=== PATIENT | female | born 1975 | race Caucasian/White ===

== ENCOUNTER 2017-10-08 20:30 | Emergency (ER) | payer OTHER ==
[~2017-10-08] VITALS: Ht 160 cm; Wt 59.0 kg
[~2017-10-08 20:30] MED LIST: PNV1TABL25 PO
[2017-10-08] MEDS ORDERED: KETOROLAC 30 MG/ML VIAL. IV ONE (21:00)
[2017-10-08 21:25] LABS: BASO # 0.1 x10^3/uL (0.0-0.2); BASO % 1 % (0-3); EOS # 0.3 x10^3/uL (0.0-0.7); EOS % 2 % (0-3); LYMPH % 19 % (24-48); MEAN CORPUSCULAR HEMOGLOBIN 28 pg (25-35); MEAN CORPUSCULAR HGB CONC 34 g/dL (31-37); MEAN CORPUSCULAR VOLUME 83 fL (79-100); MONO # 0.8 x10^3/uL (0.0-1.1); MONO % 8 % (0-9); NEUT # 7.3 x10^3uL (1.8-7.7); NEUT % 70 % (31-73); PLATELET COUNT 272 x10^3/uL (140-400); RED BLOOD COUNT 5.33 x10^6/uL (3.50-5.40); RED CELL DISTRIBUTION WIDTH 13.5 % (11.5-14.5); WHITE BLOOD COUNT 10.5 x10^3/uL (4.0-11.0)
[2017-10-08 21:37] LABS: ALBUMIN 3.9 g/dL (3.4-5.0); ALBUMIN/GLOBULIN RATIO 1.1 (1.0-1.7); CALCIUM 8.8 mg/dL (8.5-10.1); CREATININE 0.8 mg/dL (0.6-1.0); POTASSIUM 3.4 mmol/L (3.5-5.1); TOTAL BILIRUBIN 1.7 mg/dL (0.2-1.0); TOTAL PROTEIN 7.6 g/dL (6.4-8.2)
[2017-10-08 22:01] LABS: BILIRUBIN,URINE NEG (NEG); CLARITY,URINE HAZY; COLOR,URINE YELLOW; GLUCOSE,URINE NEG (NEG)
[2017-10-08 22:02] LABS: NITRITE,URINE NEG (NEG); UROBILINOGEN,URINE 0.2 mg/dL (0.2 mg/dL)
[2017-10-08 22:05] LABS: BACTERIA,URINE FEW /HPF (0-FEW); SQUAMOUS EPITHELIAL CELL,UR MANY /LPF
--- NOTE | 2017-10-08 23:12 | RAD ---
INDICATION : RUQ PAIN COMPARISON: None TECHNIQUE: Multiple ultrasound images obtained through the abdomen in grayscale and color. FINDINGS: Liver: Mildly echogenic. Gallbladder: Gallstones are visualized with tenderness within the region. There is gallbladder wall thickening with some suspected pericholecystic edema. There is some possible tumefactive sludge within. IVC: Partially distended at level of liver. Common Bile Duct: 8 mm Pancreas: No gross abnormality identified in visualized portions of pancreas. Right Kidney: No hydronephrosis. IMPRESSION: 1. Gallstones are visualized as well as gallbladder wall thickening. Given the gallbladder wall thickening and stones causes such as cholecystitis are within the differential although other possible causes of gallbladder wall thickening include reactive changes to adjacent hepatic inflammation or a systemic process such as hypoproteinemia. 2. Common bile duct appears dilated through a portion of its course. Cannot exclude a distal stone and if more complete characterization is desired a follow-up MRCP could BE obtained. 3. Liver is echogenic. Nonspecific but could be seen with mild fatty infiltration Electronically signed by: Golden Obrien MD (10/08/2017 11:09 PM) [facility]
[2017-10-09] MEDS ORDERED: IV NORMAL SALINE 1,000ML 1,000 ML IV ONE (01:00)
[2017-10-09] MEDS ORDERED: PIPERACILLIN/TAZOBACTAM 3.375 GM in IV NORMAL SALINE 50ML 50 ML IV ONE (01:00)
[2017-10-09] MEDS ORDERED: IV NORMAL SALINE 50ML 50 ML ONE (01:13)
[2017-10-09] MEDS ORDERED: PIPERACILLIN/TAZOBACTAM 3.375 GM VIAL IV ONE (01:14)
--- NOTE | 2017-10-09 02:07 | PHYS DOC ---
Past History Past Medical History: No Pertinent History Past Surgical History: No Surgical History, Other Alcohol Use: None Drug Use: None Adult General Chief Complaint Chief Complaint: FLANK PAIN HPI HPI 42-year-old female diagnosed with gallstones 4 years ago. She reports having intermittent colicky pain over the last 4 years which has become increasingly frequent and more painful recently. Over the last several days pain has been constant with paroxysms. Patient denies fevers chills sweats or shaking chills. No nausea vomiting or diarrhea. Pain is right upper quadrant of her abdomen and radiating to her right flank. Normal bladder habits and patient denies possibility of . She is currently breast-feeding Review of Systems Review of Systems Constitutional: Denies fever or chills [] Eyes: Denies change in visual acuity, redness, or eye pain [] HENT: Denies nasal congestion or sore throat [] Respiratory: Denies cough or shortness of breath [] Cardiovascular: No additional information not addressed in HPI [] GI: Denies abdominal pain, nausea, vomiting, bloody stools or diarrhea [] : Denies dysuria or hematuria [] Musculoskeletal: Denies back pain or joint pain [] Integument: Denies rash or skin lesions [] Neurologic: Denies headache, focal weakness or sensory changes [] Endocrine: Denies polyuria or polydipsia [] All other systems were reviewed and found to be within normal limits, except as documented in this note. Current Medications Current Medications Current Medications Medications (Trade) Dose Ordered Sig/Vicki Start Time Stop Time Status Last Admin Dose Admin Ketorolac Tromethamine (Toradol) 30 mg 1X ONCE 10/08/17 21:00 10/08/17 21:01 DC 10/08/17 21:37 30 MG Piperacillin Sod/ Tazobactam Sod (Zosyn) 3.375 gm STK-MED ONCE 10/09/17 01:14 10/09/17 01:15 DC Piperacillin Sod/ Tazobactam Sod 3.375 gm/Sodium Chloride 50 ml @ 100 mls/hr 1X ONCE 10/09/17 01:00 10/09/17 01:29 DC 10/09/17 01:19 100 MLS/HR Sodium Chloride 50 ml @ As Directed STK-MED ONCE 10/09/17 01:13 10/09/17 01:14 DC Allergies Allergies Allergies Coded Allergies Type Severity Reaction Last Updated Verified No Known Drug Allergies 11/16/15 No Physical Exam Physical Exam Constitutional: Well developed, well nourished, no acute distress, non-toxic appearance. [] HENT: Normocephalic, atraumatic, bilateral external ears normal, oropharynx moist, no oral exudates, nose normal. [] Eyes: PERRLA, EOMI, conjunctiva normal, no discharge. [] Neck: Normal range of motion, no tenderness, supple, no stridor. [] Cardiovascular:Heart rate regular rhythm, no murmur [] Lungs & Thorax: Bilateral breath sounds clear to auscultation [] Abdomen: Bowel sounds normal, soft, upper quadrant tenderness with positive Rosenthal's no guarding or rebound, no masses, no pulsatile masses. [] Skin: Warm, dry, no erythema, no rash. [] Back: No tenderness, no CVA tenderness. [] Extremities: No tenderness, no cyanosis, no clubbing, ROM intact, no edema. [] Neurologic: Alert and oriented X 3, normal motor function, normal sensory function, no focal deficits noted. [] Psychologic: Affect normal, judgement normal, mood normal. [] Current Patient Data Vital Signs Vital Signs Date Time Temp Pulse Resp B/P (MAP) Pulse Ox O2 Delivery O2 Flow Rate FiO2 10/08/17 20:30 98.2 92 18 99 Room Air Lab Results Laboratory Tests Test 10/08/17 20:16 10/08/17 21:04 POC Urine HCG, Qualitative hcg negative (Negative) White Blood Count 10.5 x10^3/uL (4.0-11.0) Red Blood Count 5.33 x10^6/uL (3.50-5.40) Hemoglobin 15.0 g/dL (12.0-15.5) Hematocrit 44.0 % (36.0-47.0) Mean Corpuscular Volume 83 fL (79-100) Mean Corpuscular Hemoglobin 28 pg (25-35) Mean Corpuscular Hemoglobin Concent 34 g/dL (31-37) Red Cell Distribution Width 13.5 % (11.5-14.5) Platelet Count 272 x10^3/uL (140-400) Neutrophils (%) (Auto) 70 % (31-73) Lymphocytes (%) (Auto) 19 % (24-48) L Monocytes (%) (Auto) 8 % (0-9) Eosinophils (%) (Auto) 2 % (0-3) Basophils (%) (Auto) 1 % (0-3) Neutrophils # (Auto) 7.3 x10^3uL (1.8-7.7) Lymphocytes # (Auto) 2.0 x10^3/uL (1.0-4.8) Monocytes # (Auto) 0.8 x10^3/uL (0.0-1.1) Eosinophils # (Auto) 0.3 x10^3/uL (0.0-0.7) Basophils # (Auto) 0.1 x10^3/uL (0.0-0.2) Urine Collection Type Unknown Urine Color Yellow Urine Clarity Hazy Urine pH 7.0 Urine Specific Spiro 1.020 Urine Protein Neg (NEG-TRACE) Urine Glucose (UA) Neg mg/dL (NEG) Urine Ketones (Stick) Neg mg/dL (NEG) Urine Blood Neg (NEG) Urine Nitrite Neg (NEG) Urine Bilirubin Neg (NEG) Urine Urobilinogen Dipstick 0.2 mg/dL (0.2 mg/dL) Urine Leukocyte Esterase Trace (NEG) Urine RBC 1-2 /HPF (0-2) Urine WBC 5-10 /HPF (0-4) Urine Squamous Epithelial Cells Many /LPF Urine Bacteria Few /HPF (0-FEW) Urine Mucus Mod /LPF Sodium Level 142 mmol/L (136-145) Potassium Level 3.4 mmol/L (3.5-5.1) L Chloride Level 105 mmol/L (98-107) Carbon Dioxide Level 27 mmol/L (21-32) Anion Gap 10 (6-14) Blood Urea Nitrogen 6 mg/dL (7-20) L Creatinine 0.8 mg/dL (0.6-1.0) Estimated GFR (Cockcroft-Gault) 79.0 BUN/Creatinine Ratio 8 (6-20) Glucose Level 97 mg/dL (70-99) Calcium Level 8.8 mg/dL (8.5-10.1) Total Bilirubin 1.7 mg/dL (0.2-1.0) H Aspartate Amino Transferase (AST) 12 U/L (15-37) L Alanine Aminotransferase (ALT) 23 U/L (14-59) Alkaline Phosphatase 83 U/L (46-116) Total Protein 7.6 g/dL (6.4-8.2) Albumin 3.9 g/dL (3.4-5.0) Albumin/Globulin Ratio 1.1 (1.0-1.7) Lipase 107 U/L (73-393) EKG EKG [] Radiology/Procedures Radiology/Procedures [] Course & Med Decision Making Course & Med Decision Making Pertinent Labs and Imaging studies reviewed. (See chart for details) Signs and symptoms consistent with biliary colic in the setting of known gallbladder disease. Patient is nontoxic appearing and able to ambulate without difficulty. Labs unremarkable except bilirubin mildly elevated at 1.7. Ultrasound reflecting stones with gallbladder wall thickening and dilated common bile duct. Results discussed with Dr. Alvarez surgery on-call at [place]. Dr. Alvarez's were the history and findings and requests antibiotic administration with Zosyn, nothing by mouth status, IV fluids and he will provide his services in consultation in the morning for definitive surgical care as indicated. Case discussed with Dr. Flor of the hospitalist service. She is aware the history and findings and accept the patient for inpatient admission to a surgical bed and continued care as indicated [] Dragon Disclaimer Dragon Disclaimer This electronic medical record was generated, in whole or in part, using a voice recognition dictation system. Departure Departure: Impression: Primary Impression: Biliary colic Additional Impressions: Acute cholecystitis Cholelithiasis Abdominal pain Hyperbilirubinemia [facility] Condition: IMPROVED Referrals: VIOLETA RUIZ DO, MPH (PCP) Problem Qualifiers CURT WOODS MD October 09, 2017 02:07
[2017-10-09] MEDS ORDERED: MORPHINE SULFATE 4 MG/ML DISP.SYRIN. IV ONE (02:30)
[2017-10-09] MEDS ORDERED: ONDANSETRON ODT 4 MG TAB.RAPDIS PO ONE (02:30)
[2017-10-09 02:35] VITALS: BP 114/66
== END 2017-10-09 02:35 | disposition short-term general hospital (02) ==
LOC: ER 20:30
DX: K80.62 Calculus of gallbladder and bile duct with acute cholecystitis without obstruction (principal); E80.6 Other disorders of bilirubin metabolism
CPT/HCPCS: 36415; 76705; 80053; 81001; 81025; 83690; 85025; 96365; 96375; 99285; J1885; J2270; J2543; Q0162; J7030

== ENCOUNTER 2018-11-22 21:07 | Emergency (ER) | payer OTHER ==
[~2018-11-22] VITALS: Ht 165.1 cm; Wt 65.8 kg
--- NOTE | 2018-11-22 21:11 | ED.ADGEN ---
Past History Past Medical History: No Pertinent History Past Surgical History: No Surgical History, Other Alcohol Use: None Drug Use: None Adult General Chief Complaint Chief Complaint "..I am vomiting because of my .. and I guess I passed out..." HPI HPI This 43 year old female who presents with above hx and complaints of nausea and vomiting. Pt. has episode of syncope. Pt. denies any head or chest pain. Patient does have epigastric pain from multiple episodes of vomiting. Patient has been 5 times with 4 vaginal deliveries. Patient states that each one her she develops excessive vomiting. Patient has followed up with [facility] RISK ANALYST. Ultrasound showed IUP Patient no history of trauma. No history of bad food, no history immunosuppression. No history of travel or specific ill contacts. Review of Systems Review of Systems Constitutional: Denies fever or chills [] Eyes: Denies change in visual acuity, redness, or eye pain [] HENT: Denies nasal congestion or sore throat [] Respiratory: Denies cough or shortness of breath [] Cardiovascular: No additional information not addressed in HPI [] GI: Epigastric abdominal pain, nausea, vomiting,. Denies bloody stools or diarrhea [] : Denies dysuria or hematuria [] Musculoskeletal: Denies back pain or joint pain [] Integument: Denies rash or skin lesions [] Neurologic: Denies headache, focal weakness or sensory changes [] Endocrine: Denies polyuria or polydipsia [] All other systems were reviewed and found to be within normal limits, except as documented in this note. Family History Family History Noncontributory Current Medications Current Medications Current Medications Medications (Trade) Dose Ordered Sig/Vicki Start Time Stop Time Status Last Admin Dose Admin Diphenhydramine HCl (Benadryl) 25 mg 1X ONCE 11/22/18 22:30 11/22/18 22:31 DC 11/22/18 22:21 25 MG Lactated Ringer's 1,000 ml @ 1,000 mls/hr 1X ONCE 11/22/18 22:15 11/22/18 23:12 DC 11/22/18 22:20 1,000 MLS/HR Magnesium Sulfate 50 ml @ 25 mls/hr 1X ONCE 11/22/18 22:15 11/22/18 23:12 DC 11/22/18 22:20 25 MLS/HR Ondansetron HCl (Zofran) 8 mg 1X ONCE 11/22/18 22:30 11/22/18 22:31 DC Prochlorperazine Edisylate (Compazine) 10 mg 1X ONCE 11/22/18 23:00 11/22/18 23:07 DC 11/22/18 22:54 10 MG Allergies Allergies Allergies Coded Allergies Type Severity Reaction Last Updated Verified No Known Drug Allergies 11/16/15 No Physical Exam Physical Exam Constitutional: Moderate acute distress, non-toxic appearance. [] HENT: Normocephalic, atraumatic, bilateral external ears normal, oropharynx dry, no oral exudates, nose normal. [] Eyes: PERRLA, EOMI, conjunctiva normal, no discharge. [] Neck: Normal range of motion, no tenderness, supple, no stridor. [] Cardiovascular:Heart rate regular rhythm, no murmur Note upon standing patient has developed tachycardia in excess of 120. Reclined in bed heart rate 70's Lungs & Thorax: Bilateral breath sounds clear to auscultation [] Abdomen: Bowel sounds normal, soft, no tenderness, no masses, no pulsatile mass es. [] Gravid. FHR Skin: Warm, dry, no erythema, no rash. [] Back: No tenderness, no CVA tenderness. [] Extremities: No tenderness, no cyanosis, no clubbing, ROM intact, no edema. [] Neurologic: Alert and oriented X 3, normal motor function, normal sensory function, no focal deficits noted. []DTR +2 patella and brachial. Public Health Informatician equal. No drift. Ambulatory without problems. Psychologic: Affect anxious, judgement normal, mood normal. [] Current Patient Data Vital Signs Vital Signs Date Time Temp Pulse Resp B/P (MAP) Pulse Ox O2 Delivery O2 Flow Rate FiO2 11/22/18 21:33 98.2 116 16 97 Room Air Lab Results Laboratory Tests Test 11/22/18 21:25 11/22/18 21:30 Glucose (Fingerstick) 86 mg/dL (70-99) White Blood Count 13.3 x10^3/uL (4.0-11.0) H Red Blood Count 5.35 x10^6/uL (3.50-5.40) Hemoglobin 15.2 g/dL (12.0-15.5) Hematocrit 44.8 % (36.0-47.0) Mean Corpuscular Volume 84 fL (79-100) Mean Corpuscular Hemoglobin 28 pg (25-35) Mean Corpuscular Hemoglobin Concent 34 g/dL (31-37) Red Cell Distribution Width 13.9 % (11.5-14.5) Platelet Count 271 x10^3/uL (140-400) Neutrophils (%) (Auto) 79 % (31-73) H Lymphocytes (%) (Auto) 15 % (24-48) L Monocytes (%) (Auto) 4 % (0-9) Eosinophils (%) (Auto) 1 % (0-3) Basophils (%) (Auto) 1 % (0-3) Neutrophils # (Auto) 10.5 x10^3uL (1.8-7.7) H Lymphocytes # (Auto) 2.0 x10^3/uL (1.0-4.8) Monocytes # (Auto) 0.5 x10^3/uL (0.0-1.1) Eosinophils # (Auto) 0.1 x10^3/uL (0.0-0.7) Basophils # (Auto) 0.2 x10^3/uL (0.0-0.2) Prothrombin Time 9.6 SEC (9.4-11.4) Prothrombin Time INR 0.9 (0.9-1.1) PTT 24 SEC (23-33) Maternal Serum HCG Beta Subunit 030266 mIU/mL (0-6) H Sodium Level 140 mmol/L (136-145) Potassium Level 4.1 mmol/L (3.5-5.1) Chloride Level 102 mmol/L (98-107) Carbon Dioxide Level 27 mmol/L (21-32) Anion Gap 11 (6-14) Blood Urea Nitrogen 9 mg/dL (7-20) Creatinine 0.5 mg/dL (0.6-1.0) L Estimated GFR (Cockcroft-Gault) 135.3 Glucose Level 92 mg/dL (70-99) Calcium Level 9.2 mg/dL (8.5-10.1) Magnesium Level 1.7 mg/dL (1.8-2.4) L Total Bilirubin 0.9 mg/dL (0.2-1.0) Direct Bilirubin 0.2 mg/dL (0.0-0.2) Aspartate Amino Transferase (AST) 17 U/L (15-37) Alanine Aminotransferase (ALT) 24 U/L (14-59) Alkaline Phosphatase 77 U/L (46-116) Creatine Kinase 66 U/L (26-192) Troponin I Quantitative < 0.017 ng/mL (0-0.055) MK-Tzu-M-Type Natriuretic Peptide 65 pg/mL (0-124) Total Protein 7.4 g/dL (6.4-8.2) Albumin 3.6 g/dL (3.4-5.0) Amylase Level 63 U/L (25-115) Lipase 124 U/L (73-393) EKG EKG [] Radiology/Procedures Radiology/Procedures [] Course & Med Decision Making Course & Med Decision Making Pertinent Labs and Imaging studies reviewed. (See chart for details) Patient do frequent sips of fluids. Avoid solids and milk products. Try jyoti candies and drinks may be helpful for vomiting. Take Zofran 8 mg up 4 times a day for nausea and vomiting. For marked nausea and vomiting take Compazine 25 mg rectal 4 times a day with 50 mg Benadryl by mouth. Keep follow-up primary care. Follow-up BUSINESS [employer]ISK ANALYST and primary care review labs completed in the emergency department. Note patient discharged as AMA by nurse because patient did not want to wait for infusion of magnesium or second liter of fluids. Patient had not been able to produce a urine before discharge / AMA. [] Final Impression Final Impression 1. Hyperemesis gravidarum[] 2. Gravid +/- 12 weeks (G5/T4) Vaginal 3. BHCG= 107,759 4. Syncope 5. Hypomagnesium 1.7 6. Dehydration Dragon Disclaimer Dragon Disclaimer This electronic medical record was generated, in whole or in part, using a voice recognition dictation system. Discharge Summary Visit Information Final Diagnosis Problems Medical Problems: (1) Dehydration Status: Acute (2) Hyperemesis gravidarum Status: Acute (3) Syncope Status: Acute Brief Hospital Course Allergies Allergies Coded Allergies Type Severity Reaction Last Updated Verified No Known Drug Allergies 11/16/15 No Vital Signs Vital Signs Date Time Temp Pulse Resp B/P (MAP) Pulse Ox O2 Delivery O2 Flow Rate FiO2 11/22/18 21:33 98.2 116 16 97 Room Air Lab Results Laboratory Tests Test 11/22/18 21:25 11/22/18 21:30 Glucose (Fingerstick) 86 mg/dL (70-99) White Blood Count 13.3 x10^3/uL (4.0-11.0) Red Blood Count 5.35 x10^6/uL (3.50-5.40) Hemoglobin 15.2 g/dL (12.0-15.5) Hematocrit 44.8 % (36.0-47.0) Mean Corpuscular Volume 84 fL (79-100) Mean Corpuscular Hemoglobin 28 pg (25-35) Mean Corpuscular Hemoglobin Concent 34 g/dL (31-37) Red Cell Distribution Width 13.9 % (11.5-14.5) Platelet Count 271 x10^3/uL (140-400) Neutrophils (%) (Auto) 79 % (31-73) Lymphocytes (%) (Auto) 15 % (24-48) Monocytes (%) (Auto) 4 % (0-9) Eosinophils (%) (Auto) 1 % (0-3) Basophils (%) (Auto) 1 % (0-3) Neutrophils # (Auto) 10.5 x10^3uL (1.8-7.7) Lymphocytes # (Auto) 2.0 x10^3/uL (1.0-4.8) Monocytes # (Auto) 0.5 x10^3/uL (0.0-1.1) Eosinophils # (Auto) 0.1 x10^3/uL (0.0-0.7) Basophils # (Auto) 0.2 x10^3/uL (0.0-0.2) Prothrombin Time 9.6 SEC (9.4-11.4) Prothromb Time International Ratio 0.9 (0.9-1.1) Activated Partial Thromboplast Time 24 SEC (23-33) Maternal Serum HCG Beta Subunit 385777 mIU/mL (0-6) Sodium Level 140 mmol/L (136-145) Potassium Level 4.1 mmol/L (3.5-5.1) Chloride Level 102 mmol/L (98-107) Carbon Dioxide Level 27 mmol/L (21-32) Anion Gap 11 (6-14) Blood Urea Nitrogen 9 mg/dL (7-20) Creatinine 0.5 mg/dL (0.6-1.0) Estimated GFR (Cockcroft-Gault) 135.3 Glucose Level 92 mg/dL (70-99) Calcium Level 9.2 mg/dL (8.5-10.1) Magnesium Level 1.7 mg/dL (1.8-2.4) Total Bilirubin 0.9 mg/dL (0.2-1.0) Direct Bilirubin 0.2 mg/dL (0.0-0.2) Aspartate Amino Transf (AST/SGOT) 17 U/L (15-37) Alanine Aminotransferase (ALT/SGPT) 24 U/L (14-59) Alkaline Phosphatase 77 U/L (46-116) Creatine Kinase 66 U/L (26-192) Troponin I Quantitative < 0.017 ng/mL (0-0.055) PG-Vtp-N-Type Natriuretic Peptide 65 pg/mL (0-124) Total Protein 7.4 g/dL (6.4-8.2) Albumin 3.6 g/dL (3.4-5.0) Amylase Level 63 U/L (25-115) Lipase 124 U/L (73-393) Brief Hospital Course Ms. Gonzales is a 43 old female who presented with hyperemesis gravidarum and dehydration. Pt. left before completion of fluids and mag. No urine produced during ED stay. Left AMA by Nursing. Discharge Information Condition at Discharge: Improved Dischare Medications Current Medications Lactated Ringer's 1,000 ml @ 1,000 mls/hr Q1H IV Last administered on 11/22/18at 21:40; Admin Dose 1,000 MLS/HR; Start 11/22/18 at 21:12; Stop 11/22/18 at 22:11; Status DC Ondansetron HCl (Zofran) 8 mg 1X ONCE IV Last administered on 11/22/18at 21:40; Admin Dose 8 MG; Start 11/22/18 at 21:30; Stop 11/22/18 at 21:31; Status DC Ondansetron HCl (Zofran) 8 mg 1X ONCE IV Last administered on 11/22/18at 22:20; Admin Dose 8 MG; Start 11/22/18 at 22:30; Stop 6/28/19 at 22:31; Status DC Magnesium Sulfate 50 ml @ 25 mls/hr 1X ONCE IV Last administered on 11/22/18at 22:20; Admin Dose 25 MLS/HR; Start 11/22/18 at 22:15; Stop 11/22/18 at 23:12; Status DC Lactated Ringer's 1,000 ml @ 1,000 mls/hr 1X ONCE IV Last administered on 11/22/18at 22:20; Admin Dose 1,000 MLS/HR; Start 11/22/18 at 22:15; Stop 11/22/18 at 23:12; Status DC Ondansetron HCl (Zofran) 8 mg 1X ONCE IV ; Start 11/22/18 at 22:30; Stop 11/22/18 at 22:31; Status DC Diphenhydramine HCl (Benadryl) 25 mg 1X ONCE IVP Last administered on at 22:21; Admin Dose 25 MG; Start 11/22/18 at 22:30; Stop 11/22/18 at 22:31; Status DC Prochlorperazine Edisylate (Compazine) 10 mg 1X ONCE IV Last administered on 11/22/18at 22:54; Admin Dose 10 MG; Start 11/22/18 at 23:00; Stop 11/22/18 at 23:07; Status DC Active Scripts Active Compazine (Prochlorperazine Maleate) 25 Mg Supp.rect 25 Mg RC QIDPRN PRN Zofran (Ondansetron Hcl) 8 Mg Tablet 8 Mg PO QIDPRN Reported Tablet (Pnv Cmb#95/Ferrous Fumarate/Fa) 1 Each Tablet 1 Tab PO DAILY Dragon Disclaimer This chart was dictated in whole or in part using Voice Recognition software in a busy, high-work load, and often noisy Emergency Department environment. It may contain unintended and wholly unrecognized errors or omissions. ELISEO WEBSTER MD Nov 22, 2018 21:11
[2018-11-22] MEDS ORDERED: IV RINGERS SOLUTION,LACTATED 1,000 ML IV SCH (21:12)
[2018-11-22] MEDS ORDERED: ONDANSETRON PF 4 MG/2 ML VIAL. IV ONE ×3 (21:30→22:30)
[2018-11-22 21:45] LABS: BASO # 0.2 x10^3/uL (0.0-0.2); BASO % 1 % (0-3); EOS # 0.1 x10^3/uL (0.0-0.7); EOS % 1 % (0-3); HEMATOCRIT 44.8 % (36.0-47.0); HEMOGLOBIN 15.2 g/dL (12.0-15.5); LYMPH % 15 % (24-48); MEAN CORPUSCULAR HEMOGLOBIN 28 pg (25-35); MEAN CORPUSCULAR HGB CONC 34 g/dL (31-37); MEAN CORPUSCULAR VOLUME 84 fL (79-100); MONO # 0.5 x10^3/uL (0.0-1.1); MONO % 4 % (0-9); NEUT # 10.5 x10^3uL (1.8-7.7); NEUT % 79 % (31-73); PLATELET COUNT 271 x10^3/uL (140-400); RED BLOOD COUNT 5.35 x10^6/uL (3.50-5.40); RED CELL DISTRIBUTION WIDTH 13.9 % (11.5-14.5); WHITE BLOOD COUNT 13.3 x10^3/uL (4.0-11.0)
[2018-11-22 22:09] LABS: ALBUMIN 3.6 g/dL (3.4-5.0); CALCIUM 9.2 mg/dL (8.5-10.1); CREATININE 0.5 mg/dL (0.6-1.0); DIRECT BILIRUBIN 0.2 mg/dL (0.0-0.2); GFR 135.3; MAGNESIUM 1.7 mg/dL (1.8-2.4); POTASSIUM 4.1 mmol/L (3.5-5.1); TOTAL BILIRUBIN 0.9 mg/dL (0.2-1.0); TOTAL PROTEIN 7.4 g/dL (6.4-8.2)
[2018-11-22] MEDS ORDERED: IV RINGERS SOLUTION,LACTATED 1,000 ML IV ONE (22:15)
[2018-11-22] MEDS ORDERED: MAGNESIUM SULFATE 2GM 50 ML IV ONE (22:15)
[2018-11-22] MEDS ORDERED: diphenhydrAMINE 50 MG/ML VIAL IVP ONE (22:30)
[2018-11-22 22:50] VITALS: BP 122/67
[2018-11-22] MEDS ORDERED: ONDA8TAB9 PO (22:52)
[2018-11-22] MEDS ORDERED: PROC25SU21 RC (22:52)
[2018-11-22] MEDS ORDERED: PROCHLORPERAZINE 10 MG/2 ML VIAL. IV ONE (23:00)
--- NOTE | 2018-11-25 07:47 | EKG ---
[address] [address] Test Date: 2018-11-22 Test Time: 21:51:41 Pat Name: PAULETTE HWANG Department: Room: Gender: F Funeral Director'S Assistant: : [id number] Requested By: ELISEO WEBSTER Order Number: [id number] Reading MD: Measurements Intervals [place] Rate: 83 P: 49 MS: 160 QRS: 27 QRSD: 90 T: 30 QT: 388 QTc: 456 Interpretive Statements SINUS RHYTHM QRS(T) CONTOUR ABNORMALITY CONSIDER ANTEROSEPTAL MYOCARDIAL DAMAGE POSSIBLY ABNORMAL ECG RI6.01 No previous ECG available for comparison
== END 2018-11-22 23:05 | disposition left against medical advice (07) ==
LOC: ER 21:07
DX: O21.0 Mild hyperemesis gravidarum (principal); O99.281 Endocrine, nutritional and metabolic diseases complicating pregnancy, first trimester; E86.0 Dehydration; R55 Syncope and collapse; E83.42 Hypomagnesemia; Z3A.12 12 weeks gestation of pregnancy
CPT/HCPCS: 36415; 80048; 80076; 82150; 82550; 82947; 83690; 83735; 83880; 84443; 84484; 84702; 85025; 85610; 85730; 93005; 96361; 96365; 96375; 96376; 99285; J0780; J1200; J2405; J3475; J7120

== ENCOUNTER 2018-12-30 08:14 | Emergency (ER) | payer OTHER ==
[~2018-12-30 08:14] MED LIST changes: +ONDA8TAB9 PO; +PROC25SU21 RC
[2018-12-30 08:26] VITALS: BP 112/74
[2018-12-30] MEDS ORDERED: IV NORMAL SALINE 500ML 500 ML IV SCH (08:30)
--- NOTE | 2018-12-30 08:37 | PHYS DOC ---
Past History Past Medical History: Depression, Hypothyroid Past Surgical History: Cholecystectomy Smoking: Non-smoker Alcohol Use: None Drug Use: None Adult General Chief Complaint Chief Complaint: VAGINAL BLEEDING HPI HPI Patient is a 43-year-old female presents with vaginal bleeding. She reports she is 17 weeks 3 days . She noted some blood when wiping after urinating this morning. No blood in her underwear. Less than a pad's worth of blood. Denies any dysuria. Denies any trauma. Reports last sexual intercourse was one week ago. She reports she is O+ and is receiving care prenatally from a local nurse arabic linguist. She is 5, para 4. No complications with any previous pregnancies. Denies any pain or cramping.[] Review of Systems Review of Systems Constitutional: Denies fever or chills [] Eyes: Denies change in visual acuity, redness, or eye pain [] HENT: Denies nasal congestion or sore throat [] Respiratory: Denies cough or shortness of breath [] Cardiovascular: No chest pain or palpitations[] GI: Denies abdominal pain, nausea, vomiting, bloody stools or diarrhea [] : Denies dysuria or hematuria, see history of present illness [] Musculoskeletal: Denies back pain or joint pain [] Integument: Denies rash or skin lesions [] Neurologic: Denies headache, focal weakness or sensory changes [] Endocrine: Denies polyuria or polydipsia [] All other systems were reviewed and found to be within normal limits, except as documented in this note. Allergies Allergies Allergies Coded Allergies Type Severity Reaction Last Updated Verified No Known Drug Allergies 11/16/15 No Physical Exam Physical Exam Constitutional: Well developed, well nourished, no acute distress, non-toxic appearance. [] HENT: Normocephalic, atraumatic, bilateral external ears normal, oropharynx moist, no oral exudates, nose normal. [] Eyes: PERRLA, EOMI, conjunctiva normal, no discharge. [] Neck: Normal range of motion, no tenderness, supple, no stridor. [] Cardiovascular:Heart rate regular rhythm, no murmur [] Lungs & Thorax: Bilateral breath sounds clear to auscultation [] Abdomen: Bowel sounds normal, soft, no tenderness, fundus below the umbilicus, heart tones of 155 bpm, no pulsatile masses. Pelvic exam performed with salad bar clerk: External genitalia, Hingham's glands, urethra, and Bartholin's are all normal, no lesions, no swelling. Vaginal vault: Scant blood in the vault, no other discharge noted. Cervix: Parous os. No active bleeding. Cervix is closed.[] Skin: Warm, dry, no erythema, no rash. No petechiae[] Back: No tenderness, no CVA tenderness. [] Extremities: No tenderness, no cyanosis, no clubbing, ROM intact, no edema. [] Neurologic: Alert and oriented X 3, normal motor function, normal sensory function, no focal deficits noted. [] Psychologic: Affect normal, judgement normal, mood normal. [] Current Patient Data Vital Signs Vital Signs Date Time Temp Pulse Resp B/P (MAP) Pulse Ox O2 Delivery O2 Flow Rate FiO2 12/30/18 08:26 98.7 88 18 100 Room Air EKG EKG [] Radiology/Procedures Radiology/Procedures PROCEDURE: PREG MORE THAN OR EQ TO 14 WKS Examination: PREG MORE THAN OR EQ TO 14 WKS History: Vaginal bleeding, 17 weeks COMPARISON/CORRELATION: None FINDINGS: Single living intrauterine breech lie gestation is evident with heart rate of 150 bpm. Placenta is at the posterior wall. stomach is identified. Normal movement and heart motion evident. anatomy identified includes: Bladder, spine, bilateral lateral ventricles, stomach, heart, aorta, three-vessel cord insertion, bilateral kidneys, diaphragm, cerebellum, cisterna magna, bilateral upper extremities, and bilateral lower extremities. measurements include: Biparietal diameter: 3.8 cm corresponding to 17 weeks 5 days. Femur length of 2.6 cm corresponding to 17 weeks 5 days. Head circumference of 13.7 cm corresponding to 17 weeks 1 day. Abdominal circumference of 11.9 cm corresponding to 17 weeks 4 days. Age by 4 parameters corresponds to 17 weeks 4 days. EDC by average age is 17 weeks 4 days. H/A ratio is 1.15. FL/HC ratio is 18.8. Cephalic index is 83. Normal volume of amniotic fluid is identified with amniotic fluid index of 8.8. Estimated weight is 203 g. Cervical length is 4.1 cm. IMPRESSION: Single living breech lie intrauterine gestation. Age by 4 parameters corresponding to 17 weeks 4 days. No subchorionic hemorrhage.[] Course & Med Decision Making Course & Med Decision Making Pertinent Labs and Imaging studies reviewed. (See chart for details) ED course: Patient arrived, was placed in bed, and tolerated exam well. She was transported to and from [place] emergency department with any complications. After the return of the laboratory and imaging studies, these were discussed with the patient who voiced understanding. All questions were answered. She was discharged in improved condition. Medical decision making: This appears to be a threatened miscarriage. There is no evidence of a incomplete miscarriage, septic miscarriage, Rh incompatibility, anemia, nor significant hemorrhage at this time. The white cells are noted in the urine with moderate epithelial cells. Will start treatment pending definitive culture.[] Dragon Disclaimer Dragon Disclaimer This electronic medical record was generated, in whole or in part, using a voice recognition dictation system. Departure Departure: Impression: Primary Impression: Threatened miscarriage Additional Impression: Bacteriuria Disposition: HOME, SELF-CARE Condition: IMPROVED Referrals: VIOLETA RUIZ DO, MPH (PCP) Follow-up in 2 days Patient Instructions: - Urinary Tract Infection, Threatened Miscarriage Additional Instructions: Drink plenty of fluids. Do not insert anything in the vagina, tampons, douching, sexual intercourse, until cleared by your primary care physician or INSURANCE RISK MANAGER team. Return to the ER if increasing bleeding, fever of more than 101�, or any other concerns. Scripts Nitrofurantoin Monohyd/M-Cryst (MACROBID 100 MG CAPSULE) 100 Mg Capsule 1 CAP PO BID for urinary tract infection, #20 CAP Prov: AUBREY POSADA DO 12/30/18 Problem Qualifiers AUBREY POSADA DO Dec 30, 2018 08:37
[2018-12-30 08:54] LABS: BASO # 0.1 x10^3/uL (0.0-0.2); BASO % 1 % (0-3); EOS # 0.1 x10^3/uL (0.0-0.7); EOS % 2 % (0-3); HEMATOCRIT 38.9 % (36.0-47.0); HEMOGLOBIN 13.4 g/dL (12.0-15.5); LYMPH # 1.9 x10^3/uL (1.0-4.8); LYMPH % 22 % (24-48); MEAN CORPUSCULAR HEMOGLOBIN 29 pg (25-35); MEAN CORPUSCULAR HGB CONC 34 g/dL (31-37); MEAN CORPUSCULAR VOLUME 84 fL (79-100); MONO # 0.5 x10^3/uL (0.0-1.1); MONO % 6 % (0-9); NEUT # 6.1 x10^3uL (1.8-7.7); NEUT % 70 % (31-73); PLATELET COUNT 245 x10^3/uL (140-400); RED BLOOD COUNT 4.63 x10^6/uL (3.50-5.40); RED CELL DISTRIBUTION WIDTH 14.1 % (11.5-14.5); WHITE BLOOD COUNT 8.7 x10^3/uL (4.0-11.0)
[2018-12-30 09:12] LABS: ALBUMIN 2.9 g/dL (3.4-5.0); ALBUMIN/GLOBULIN RATIO 0.7 (1.0-1.7); CALCIUM 9.4 mg/dL (8.5-10.1); CREATININE 0.6 mg/dL (0.6-1.0); GFR 109.6; POTASSIUM 3.3 mmol/L (3.5-5.1); TOTAL BILIRUBIN 0.7 mg/dL (0.2-1.0); TOTAL PROTEIN 6.9 g/dL (6.4-8.2)
[2018-12-30 09:22] LABS: BILIRUBIN,URINE NEG (NEG); CLARITY,URINE CLOUDY; COLOR,URINE YELLOW; GLUCOSE,URINE NEG (NEG); NITRITE,URINE NEG (NEG); UROBILINOGEN,URINE 0.2 mg/dL (0.2 mg/dL)
[2018-12-30 09:23] LABS: BACTERIA,URINE MOD /HPF (0-FEW); SQUAMOUS EPITHELIAL CELL,UR MOD /LPF
--- NOTE | 2018-12-30 09:55 | RAD ---
Examination: PREG MORE THAN OR EQ TO 14 WKS History: Vaginal bleeding, 17 weeks COMPARISON/CORRELATION: None FINDINGS: Single living intrauterine breech lie gestation is evident with heart rate of 150 bpm. Placenta is at the posterior wall. stomach is identified. Normal movement and heart motion evident. anatomy identified includes: Bladder, spine, bilateral lateral ventricles, stomach, heart, aorta, three-vessel cord insertion, bilateral kidneys, diaphragm, cerebellum, cisterna magna, bilateral upper extremities, and bilateral lower extremities. measurements include: Biparietal diameter: 3.8 cm corresponding to 17 weeks 5 days. Femur length of 2.6 cm corresponding to 17 weeks 5 days. Head circumference of 13.7 cm corresponding to 17 weeks 1 day. Abdominal circumference of 11.9 cm corresponding to 17 weeks 4 days. Age by 4 parameters corresponds to 17 weeks 4 days. EDC by average age is 17 weeks 4 days. H/A ratio is 1.15. FL/HC ratio is 18.8. Cephalic index is 83. Normal volume of amniotic fluid is identified with amniotic fluid index of 8.8. Estimated weight is 203 g. Cervical length is 4.1 cm. IMPRESSION: Single living breech lie intrauterine gestation. Age by 4 parameters corresponding to 17 weeks 4 days. No subchorionic hemorrhage. Electronically signed by: Jackson Rae MD (12/30/2018 9:52 AM) [facility]
[2018-12-30] MEDS ORDERED: NITR100C62 PO (10:05)
== END 2018-12-30 10:07 | disposition home or self-care (01) ==
LOC: ER 08:14
DX: O20.0 Threatened abortion (principal); R82.71 Bacteriuria; O99.282 Endocrine, nutritional and metabolic diseases complicating pregnancy, second trimester; E03.9 Hypothyroidism, unspecified; Z90.49 Acquired absence of other specified parts of digestive tract; Z3A.17 17 weeks gestation of pregnancy
CPT/HCPCS: 36415; 76805; 80053; 81001; 84702; 85025; 86900; 86901; 87086; 87491; 87591; 99285; J7040; Q0111